=== PATIENT | female | born 1970 | race Caucasian/White ===

== ENCOUNTER 2020-02-15 05:23 | Day surgery (SDC) | payer MEDICAID ==
[~2020-02-15] VITALS: Ht 162.6 cm; Wt 88.5 kg
[~2020-02-15 05:23] MED LIST: BUSPAR 15 MG TA15 MG PO; LEXAPRO20 MG PO; LISINOPRIL-HCT1 EAC4 PO; RESTORIL15 MG PO; SEROQUEL XR300 MG PO; XANAX1 MG PO
[2020-02-15 05:54] LABS: HEMATOCRIT 40.1 % (36.0-48.0); HEMOGLOBIN 12.5 g/dL (12-16); MCH 27.8 pg (26.0-34.0); MCHC 31.2 g/dL (31.0-37.0); MCV 89.1 fL (80.0-100.0); MEAN PLATELET VOLUME 9.5 fL (7.4-10.4); RBC 4.5 10x6/uL (4.00-5.40); RDW 15.2 % (11.5-14.5); WBC 7.3 10x3/uL (4.8-10.8)
[2020-02-15 06:31] LABS: CALC OSMOLALITY 276 mosm/kg (275-300); CALCIUM 9.1 mg/dL (8.5-10.1); CARBON DIOXIDE 30.1 mmol/L (21.0-32.0); CHLORIDE - SERUM 103 mmol/L (98-107); CREATININE - SERUM 0.6 mg/dL (0.6-1.3); GLUCOSE 129 mg/dL (74-106); POTASSIUM - SERUM 4.3 mmol/L (3.5-5.1); SODIUM 137 mmol/L (136-145); UREA NITROGEN 15 mg/dL (7-18); eGFR NON AFRICAN AMERICAN > 90 mL/min (90-120)
[2020-02-15 06:40] VITALS: Ht 162.6 cm; Wt 88.5 kg
[2020-02-15] MEDS ORDERED: HYDROCODON-ACE1 EA10 PO (07:56)
--- NOTE | 2020-02-15 09:08 | NUR ---
FULL LIQUID TRAY TO ROOM. VSS. DRESSING CDI-CAP REFILL WNL-POSITIVE STRONG REGULAR PULSE-ICE IN PLACE. DENIES PAIN.
[2020-02-15 09:48] LABS: HCG SERUM NEGATIVE (NEGATIVE)
--- NOTE | 2020-02-15 09:50 | NUR ---
0930-REMOVED IV WITH CATH INTACT,DISPOSED INTO SHARPS,COVERED WITH GUAZE,SECURED WITH MEDIPORE TAPE.
--- NOTE | 2020-02-15 09:53 | NUR ---
0943-REVIEWED POST OPERATIVE INSTRUCTIONS AND FOLLOW UP APPOINTMENT. DRESSING CDI, BOOT IN PLACE, ABLE TO WIGGLE DIGITS,CAP REFILL WNL. VSS. PAIN TOLERABLE AND APPROPRIATE FOR PROCEDURE 12/19.
--- NOTE | 2020-02-15 09:58 | NUR ---
0945-ESCORTED OUT VIA W/C WITH DAUGHTER AWAITING TO DRIVE HOME
--- NOTE | 2020-02-20 13:35 | OP ---
PATIENT NAME: MOISÉS HENDRICKS MEDICAL RECORD: [id number] :66 LOCATION:[facility] ADMISSION DATE: SURGEON: ARLEEN MINER MD DATE OF OPERATION: 02/15/2020 PREOPERATIVE DIAGNOSIS: Ganglion cyst, dorsal aspect of the right foot. POSTOPERATIVE DIAGNOSES: Ganglion cyst, dorsal aspect of the right foot, osteophytes of the right foot. PROCEDURE: 1. Removal of ganglion cyst of the right foot. 2. Removal of osteophytes of the right foot dorsum. SURGEON: Arleen Miner MD ANESTHESIA: General. INTRAOPERATIVE COMPLICATIONS: None. SUMMARY OF PATHOLOGIC FINDINGS: As predicted with the preoperative radiographs, the patient does have a substantial amount of arthritis causing a bone spur formation as well as a ganglion cyst formation. A substantial ganglion cyst as well as osteophytes were encountered and then removed. OPERATIVE SUMMARY IN DETAIL: After obtaining the appropriate preoperative orthopedic surgery consent as well as anesthetic consultation, evaluation and clearance, the patient was brought to the operating room and placed on the operating table in supine position. After adequate general laryngeal mask airway was administered, tourniquet was placed about the proximal aspect of the right lower extremity. Right lower extremity was then prepped and draped in routine sterile fashion. Appropriate timeout was taken and agreed upon by all. The patient's lower extremity was prepped and draped in the usual fashion. The leg was elevated and exsanguinated, tourniquet was inflated to 350 mmHg. Incision was made in line with the previous incision that had been made for removal of ganglion cyst. Ganglion cyst was found, encountered, removed excised and sent for pathologic review. At this point, in the depths of the incision, the patient did have osteophytes consistent with midfoot arthritis as discussed prior. The osteophytes were removed with a rongeur. Having completed rongeur, removed the osteophytes, the wound was completely irrigated, closed with #1 Vicryl, 2-0 Vicryl and 4-0 Prolene. Sterile dressings were applied. The patient was awakened and taken to recovery room in stable condition. All final needle and sponge counts were correct. TRANSINT:[id number] Voice Confirmation ID: [id number] DOCUMENT ID: [id number] ARLEEN MINER MD at [id number] CC: [id number] DICTATION DATE: 02/17/20 0743 ZONE MAINTENANCE TECHNICIAN: 02/17/20 1010 [facility] [place] [place] 02/15/20 [place] [id number] [place] [id number]
== END 2020-02-15 09:45 | disposition home or self-care (01) ==
LOC: D.PAN 05:23 → D.OPS 08:00 → D.PAN 08:30 → D.OPS 08:30 → D.PAN 09:45
PROVIDERS: Anesthesiology; ATTEND Orthopaedic Surgery
DX: M67.471 Ganglion, right ankle and foot (principal); M25.774 Osteophyte, right foot; I10 Essential (primary) hypertension; Z72.0 Tobacco use